=== PATIENT | female | born 1970 | race African-American/Black ===

== ENCOUNTER 2017-01-29 11:33 | Emergency (ER) | payer SELFPAY ==
[~2017-01-29] VITALS: Ht 160 cm; Wt 77.0 kg
[~2017-01-29 11:33] MED LIST: 1-ME1LIQ PO; BENA10TA PO; HYDR12.56 PO; IBUP800T23 PO
[2017-01-29 11:35] VITALS: BP 129/66; PULSE 76; RESP 16; TEMP 97.9; O2SAT 97
[2017-01-29] MEDS ORDERED: FURO40TA PO (12:02)
[2017-01-29] MEDS ORDERED: LOSA50TA2 PO (12:02)
--- NOTE | 2017-01-29 12:18 | PD ---
Physical Exam Date Seen by Provider: Jan 29, 2017 Narrative Patient was sent to us from an urgent care for evaluation of possible DVT in her left lower extremity. Data Data Last Documented VS Vital Signs Date Time Temp Pulse Resp B/P Pulse Ox O2 Delivery O2 Flow Rate FiO2 01/29/17 11:50 96 01/29/17 11:35 97.9 76 16 129/66 Orders Ed Poc Ultrasound (01/29/17 11:54) MDM Supervised Visit with STEPHANIE: Yes Narrative Course I, Dr. Ramos, have reviewed the advance practice practitioner's documentation and am in agreement, met with the patient face to face, made the diagnosis, and the medical decision making was done by me. *My assessment and Findings: Please see procedure note Procedures Procedure Narrative Venous ultrasound The patient's left was scanned from the groin to the popliteal fossa. The veins were 100% compressible. No foreign material was seen in the veins. France Ramos MD Jan 29, 2017 12:17
[2017-01-29] MEDS ORDERED: DICL75TA PO (12:29)
[2017-01-29] MEDS ORDERED: NEUR300C PO (12:29)
--- NOTE | 2017-01-29 12:39 | PD ---
HPI Chief Complaint: Injury Time Seen by Provider: 12:30 Travel History International Travel<30 days: No Contact w/Intl Traveler<30days: No Traveled to known affect area: No History of Present Illness HPI 46-year-old black female presents to emergency department at the recommendation of an urgent care for evaluation of left leg tingling. She states that she was evaluated and sent here for rule out DVT. The patient states that over last few days she's had tingling and pins and needle sensation in her left leg from the mid thigh down into her calf. She denies any trauma. No recent illness. She does smoke occasionally. She does not take control. She has had no sedentary activity. She does not report any swelling of the leg. She does report history of lower back pain in the past and receiving epidural steroid blocks. Her last block was in July. She states that her grandmother's had a DVT in cancer. Her mother has not had blood clots nor has any siblings. Patient denies any abdominal pain, dysuria, frequency, hematuria. No weakness. No redness or warmth. PFSH Past Medical History Narrative Medical Chronic back pain ,Hypertension Anemia: Yes Heart Rhythm Problems: No Cardiac Catheterization: No Cardiovascular Problems: Yes High Cholesterol: No Congestive Heart Failure: No Diabetes: No Diminished Hearing: No GERD: Yes Headaches: Yes Hypertension: Yes Musculoskeletal: Yes (LUMBAR SPINE CHRONIC PAIN) Immunizations Current: Yes Migraines: Yes Tetanus Vaccination: > 5 Years ?: Unknown Menopausal: No : 2 Para: 2 Miscarriage: 0 : 0 Tubal Ligation: Yes Past Surgical History Narrative Surgical , hysterectomy, breast reduction, left knee arthroscopy Abdominal Surgery: Yes (Gastric bypass) Section: Yes (X 2) Coronary Artery Bypass Graft: No Gynecologic Surgery: Yes (tottal hysterectomy) Hysterectomy: Yes Other Surgery: Yes (BREAST REDUCTION) Social History Alcohol Use: Yes (rare) Tobacco Use: Yes Substance Use: No Allergies-Medications (Allergen,Severity, Reaction): Coded Allergies: Dilaudid (Verified Allergy, Intermediate, ITCH, SWELLS UP, 01/29/17) Patient began itching with welts over body after Dilaudid given. Added to Allergy list. Penicillin (Verified Allergy, Mild, HIVES, 01/29/17) Reported Meds & Prescriptions Reported Meds & Active Scripts Active Diclofenac Sodium DR (Diclofenac Sodium) 75 Mg Tabdr 75 Mg PO BID Neurontin (Gabapentin) 300 Mg Cap 300 Mg PO TID Reported Furosemide 40 Mg Tab 40 Mg PO DAILY Losartan-Hydrochlorothiazide 50-12.5 Mg Tab 1 Tab PO DAILY Review of Systems Except as stated in HPI: all other systems reviewed are Neg General / Constitutional: No: Fever, Chills Eyes: No: Blurred Vision, Visual changes HENT: No: Headaches, Neck Stiffness Cardiovascular: No: Chest Pain or Discomfort, Palpitations, Irregular Rhythm, Tachycardia Respiratory: No: Cough, Shortness of Breath Gastrointestinal: No: Nausea, Vomiting, Abdominal Pain Genitourinary: No: Dysuria, Hematuria Musculoskeletal: Positive: Pain, No: Limited ROM Skin: No Rash, No Itching Neurologic: Positive: Paresthesia, Sensory Disturbance, No: Focal Abnormalities, Coordination Problem, Headache Physical Exam Narrative GENERAL: Well-developed, well-nourished in no apparent distress. Nontoxic appearing. HEAD: Normocephalic, atraumatic. EYES: Pupils equal round and reactive. Extraocular motions intact. No scleral icterus. No injection or drainage. ENT: Nose clear. Throat without erythema, tonsillar hypertrophy or exudate. Uvula midline. Airway patent. NECK: Trachea midline. Supple, nontender, moves head freely. No central bony tenderness or spasm. CARDIOVASCULAR: Regular rate and rhythm without murmurs, gallops, or rubs. RESPIRATORY: Clear to auscultation. Breath sounds equal bilaterally. No wheezes , rales, or rhonchi. GASTROINTESTINAL: Abdomen soft, non-tender, nondistended. No hepato-splenomegaly , or palpable masses. No guarding. EXTREMITIES: No clubbing, cyanosis, or edema. No joint tenderness. Examination of the lower extremities reveal no obvious swelling. There is no erythema, warmth or ecchymosis. There are no cords. There is no temperature difference. Patient has intact dorsalis pedis pulses bilaterally. Positive posterior tibialis pulses bilaterally. Patient complains of pain with just light touch of the whole leg from the mid thigh down into the calf. She complains of pain with range of motion testing. Homans sign causes discomfort but is not a classical calf tenderness pain. BACK: Nontender without deformity. No flank tenderness. NEUROLOGICAL: Awake, alert and oriented x 3 .Cranial nerves grossly intact. Motor and sensory grossly within normal limits. Normal speech. Data Data Last Documented VS Vital Signs Date Time Temp Pulse Resp B/P Pulse Ox O2 Delivery O2 Flow Rate FiO2 01/29/17 11:50 96 01/29/17 11:35 97.9 76 16 129/66 Orders Ed Poc Ultrasound (01/29/17 11:54) MDM Medical Decision Making Medical Screen Exam Complete: Yes Emergency Medical Condition: Yes Differential Diagnosis Differential diagnoses: PVD, DVT, radiculopathy, neuropathy Narrative Course The patient's history and exam have been discussed with Dr. CASTRO. The patient 's Wells criteria is 0. She has performed an ultrasound of the left lower extremity for DVT. This has been ruled out. The patient has a compressible venous system. She has palpable arterial pulses. This is not peripheral vascular disease or DVT. I suspect her complaints are more of a neuropathic type pain. This is left leg neuropathy Diagnosis Primary Impression: Neuropathy of left lower extremity Patient Instructions: General Instructions Additional Instructions: Rest. Voltaren and Neurontin. Follow-up with a medical doctor in the next 2-3 days for recheck. Return to the ER if symptoms worsen or if problems develop. If her symptoms do not resolve or worsen he may need repeat ultrasound. Stop smoking. Med/Other Pt SpecificInfo: Prescription(s) given Scripts Diclofenac Sodium DR 75 Mg Tabdr75 Mg PO BID #20 TAB Prov:France Castro MD 01/29/17 Gabapentin (Neurontin)300 Mg [id number] Mg PO TID #30 CAP Prov:France Castro MD 01/29/17 Disposition: 01 DISCHARGE HOME Condition: Stable Juanjo Buckley Jan 29, 2017 12:39
== END 2017-01-29 13:01 | disposition home or self-care (01) ==
LOC: NEPD 11:33
DX: G57.92 Unspecified mononeuropathy of left lower limb (principal); D64.9 Anemia, unspecified; K21.9 Gastro-esophageal reflux disease without esophagitis; I10 Essential (primary) hypertension; Z72.0 Tobacco use; Z79.899 Other long term (current) drug therapy
CPT/HCPCS: 99283

== ENCOUNTER 2017-07-27 13:34 | Observation (INO) | payer SELFPAY ==
[~2017-07-27] VITALS: Ht 160 cm; Wt 75.0 kg
[~2017-07-27 13:34] MED LIST changes: -1-ME1LIQ PO; -BENA10TA PO; +DICL75TA PO; +FURO40TA PO; -HYDR12.56 PO; -IBUP800T23 PO; +LOSA50TA2 PO; +NEUR300C PO
[2017-07-27 13:37] VITALS: BP 176/106; PULSE 87; RESP 15; TEMP 98.5; O2SAT 99
--- NOTE | 2017-07-27 13:57 | PD ---
HPI Chief Complaint: Chest Pain Time Seen by Provider: 13:45 Travel History International Travel<30 days: No Contact w/Intl Traveler<30days: No Traveled to known affect area: No History of Present Illness HPI 47-year-old female presents to the emergency department for evaluation of midsternal chest pressure that started this morning around 9 AM. She states this started before going to interview, but worsened AND interview. She then lost her voice. She states it feels like somebody is sitting on her chest. She has worse with deep breathing. Patient states she has history of anxiety, but this is not typical for anxiety. Just reports history of hypertension. She was on losartan, hydrochlorothiazide, but is no longer taking due to moving down here not having a primary care physician. She had stress test several years ago which was normal, but a recent stress test or cardiac catheterization. She does not follow with a primary care physician or warehousing technician at this time. She has history of gastric bypass, hysterectomy. No recent surgery or travel. No history DVT/PE. No hemoptysis. No leg edema. Patient states she drinks alcohol and smokes tobacco occasionally. No illicit drug use. PFSH Past Medical History Anemia: Yes Heart Rhythm Problems: No Cardiac Catheterization: No Cardiovascular Problems: Yes High Cholesterol: No Congestive Heart Failure: No Diabetes: No Diminished Hearing: No GERD: Yes Headaches: Yes Hypertension: Yes Musculoskeletal: Yes (LUMBAR SPINE CHRONIC PAIN) Immunizations Current: Yes Migraines: Yes ?: Not Menopausal: No : 2 Para: 2 Miscarriage: 0 : 0 Dilation and Curettage (D&C): Yes Tubal Ligation: Yes Past Surgical History Abdominal Surgery: Yes (Gastric bypass) Section: Yes (X 2) Coronary Artery Bypass Graft: No Gynecologic Surgery: Yes (tottal hysterectomy) Hysterectomy: Yes Other Surgery: Yes (BREAST REDUCTION) Social History Alcohol Use: Yes (RARE) Tobacco Use: Yes Substance Use: No Allergies-Medications (Allergen,Severity, Reaction): Coded Allergies: hydromorphone (Unverified Allergy, Intermediate, ITCH, SWELLS UP, 06/06/17) Patient began itching with welts over body after Dilaudid given. Added to Allergy list. penicillin G (Unverified Allergy, Mild, HIVES, 06/06/17) Reported Meds & Prescriptions Reported Meds & Active Scripts Active Diclofenac Sodium DR (Diclofenac Sodium) 75 Mg Tabdr 75 Mg PO BID Neurontin (Gabapentin) 300 Mg Cap 300 Mg PO TID Reported Furosemide 40 Mg Tab 40 Mg PO DAILY Losartan-Hydrochlorothiazide 50-12.5 Mg Tab 1 Tab PO DAILY Review of Systems Except as stated in HPI: all other systems reviewed are Neg Physical Exam Narrative GENERAL: Well-nourished, well-developed female patient, ambulatory. Afebrile. SKIN: Focused skin assessment warm/dry. HEAD: Normocephalic. Atraumatic. EYES: No scleral icterus. No injection or drainage. NECK: Supple, trachea midline. No JVD or lymphadenopathy. CARDIOVASCULAR: Regular rate and rhythm without murmurs, gallops, or rubs. Bilateral radial and pedal pulses are 2+. RESPIRATORY: Breath sounds equal bilaterally. No accessory muscle use. Lungs sounds are clear to auscultation. GASTROINTESTINAL: Abdomen soft, non-tender, nondistended. MUSCULOSKELETAL: No cyanosis, or edema. Midsternal chest pain is reproducible with palpation. BACK: Nontender without obvious deformity. No CVA tenderness. Data Data Last Documented VS Vital Signs Date Time Temp Pulse Resp B/P (MAP) Pulse Ox O2 Delivery O2 Flow Rate FiO2 07/27/17 13:46 89 100 Room Air 07/27/17 13:37 98.5 15 176/106 (129) Orders Orders Electrocardiogram (07/27/17 ) Electrocardiogram (07/27/17 13:51) Basic Metabolic Panel (Bmp) (07/27/17 13:51) Ckmb (Isoenzyme) Profile (07/27/17 13:51) Complete Blood Count With Diff (07/27/17 13:51) Magnesium (Mg) (07/27/17 13:51) Troponin I (07/27/17 13:51) Chest, Single Ap (07/27/17 13:51) Ecg Monitoring (07/27/17 13:51) Bilateral Bp Monitoring (07/27/17 13:51) Iv Access Insert/Monitor (07/27/17 13:51) Oximetry (07/27/17 13:51) Oxygen Administration (07/27/17 13:51) Aspirin Chew (Aspirin Chew) (07/27/17 14:00) Sodium Chloride 0.9% Flush (Ns Flush) (07/27/17 14:00) Ketorolac Inj (Toradol Inj) (07/27/17 14:00) Admit Order (Ed Use Only) (07/27/17 15:46) Pantoprazole (Protonix) (07/27/17 16:00) Acetaminophen (Tylenol) (07/27/17 16:00) Labs Laboratory Tests Test 07/27/17 14:19 White Blood Count 4.1 TH/MM3 Red Blood Count 3.45 MIL/MM3 Hemoglobin 10.7 GM/DL Hematocrit 32.3 % Mean Corpuscular Volume 93.8 FL Mean Corpuscular Hemoglobin 31.0 PG Mean Corpuscular Hemoglobin Concent 33.1 % Red Cell Distribution Width 12.6 % Platelet Count 339 TH/MM3 Mean Platelet Volume 7.9 FL Neutrophils (%) (Auto) 46.0 % Lymphocytes (%) (Auto) 42.1 % Monocytes (%) (Auto) 9.8 % Eosinophils (%) (Auto) 1.2 % Basophils (%) (Auto) 0.9 % Neutrophils # (Auto) 1.9 TH/MM3 Lymphocytes # (Auto) 1.7 TH/MM3 Monocytes # (Auto) 0.4 TH/MM3 Eosinophils # (Auto) 0.1 TH/MM3 Basophils # (Auto) 0.0 TH/MM3 CBC Comment DIFF FINAL Differential Comment Blood Urea Nitrogen 12 MG/DL Creatinine 0.71 MG/DL Random Glucose 80 MG/DL Calcium Level 8.9 MG/DL Magnesium Level 1.9 MG/DL Sodium Level 137 MEQ/L Potassium Level 3.9 MEQ/L Chloride Level 103 MEQ/L Carbon Dioxide Level 29.2 MEQ/L Anion Gap 5 MEQ/L Estimat Glomerular Filtration Rate 107 ML/MIN Total Creatine Kinase 68 U/L Troponin I LESS THAN 0.02 NG/ML MDM Medical Decision Making Medical Screen Exam Complete: Yes Emergency Medical Condition: Yes Medical Record Reviewed: Yes Interpretation(s) Last Impressions Chest X-Ray 07/27/17 3911 Signed Impressions: Service Date/Time: July 14:05 - CONCLUSION: No acute disease. Riley Worthy MD Differential Diagnosis ACS versus muscle strain versus anxiety versus pneumonia versus pneumothorax Narrative Course 47-year-old female presents to the emergency department for evaluation of chest pain that started this morning at 9 AM. Chest pain is reproducible. Patient states it feels like a person is sitting on her. EKG shows sinus rhythm, heart rate 87, no acute ST changes. CBC, BMP, CK, troponin, magnesium, chest x-ray ordered and pending. Patient is given aspirin 162 mg by mouth, Toradol 30 mg IV. CBC shows no acute abnormality. BMP is unremarkable. CK is 68. Troponin troponin is less than 0.02. Magnesium is 1.9. Chest x-ray shows no acute disease. Patient states aspirin has caused her to have "abdominal cramping" and the Toradol caused her to have a headache. Patient is given protonic strain milligrams by mouth, Tylenol 650 mg by mouth. She agrees to admission to chest pain center for further evaluation. Diagnosis Primary Impression: Chest pain Qualified Codes: R07.9 - Chest pain, unspecified Admitting Information Admitting Physician Requests: Yane Wright Jul 27, 2017 13:57
[2017-07-27] MEDS ORDERED: ASPIRIN 81 MG CHEW TAB PO ONE (14:00)
[2017-07-27] MEDS ORDERED: KETOROLAC TROMETHAMINE 30 MG/ML (IVP) VIAL IV PUSH ONE (14:00)
--- NOTE | 2017-07-27 14:17 | RADRPT ---
EXAM DATE/TIME: 07/27/2017 14:05 [facility] COMPARISON: No previous studies available for comparison. INDICATIONS : Mid chest pain. MEDICAL HISTORY : Asthma. SURGICAL HISTORY : section. Gastric bypass. D&C. ENCOUNTER: Initial ACUITY: 2 days PAIN SCORE: 8/10 LOCATION: Bilateral chest FINDINGS: A single view of the chest demonstrates the lungs to be symmetrically aerated without evidence of mas s, infiltrate or effusion. The cardiomediastinal contours are unremarkable. Osseous structures are intact. CONCLUSION: No acute disease. Riley Worthy MD on July 27, 2017 at 14:15 Board Certified Radiologist. This report was verified electronically.
[2017-07-27 15:08] LABS: AUTOMATED NEUTROPHIL # 1.9 TH/MM3 (1.8-7.7); BASOPHIL % 0.9 % (0.0-2.0); EOSINOPHIL # 0.1 TH/MM3 (0-0.4); EOSINOPHIL % 1.2 % (0.0-4.0); HEMATOCRIT 32.3 % (35.0-46.0); HEMO FLAGS DIFF FINAL; LYMPH % 42.1 % (9.0-44.0); LYMPHOCYTE # 1.7 TH/MM3 (1.0-4.8); MEAN CELL VOLUME 93.8 FL (80.0-100.0); MEAN CORPUSCULAR HGB CONC 33.1 % (32.0-36.0); MONO % 9.8 % (0.0-8.0); PLATELET COUNT 339 TH/MM3 (150-450); RED BLOOD COUNT 3.45 MIL/MM3 (4.00-5.30); RED CELL DISTRIBUTION WIDTH 12.6 % (11.6-17.2); WHITE BLOOD COUNT 4.1 TH/MM3 (4.0-11.0)
[2017-07-27 15:26] LABS: ANION GAP 5 MEQ/L (5-15); BICARBONATE 29.2 MEQ/L (21.0-32.0); BLOOD UREA NITROGEN 12 MG/DL (7-18); CHLORIDE 103 MEQ/L (98-107); GLOMERULAR FILTRATION RATE 107 ML/MIN (>89); MAGNESIUM 1.9 MG/DL (1.5-2.5); POTASSIUM 3.9 MEQ/L (3.5-5.1); SODIUM (NA) 137 MEQ/L (136-145)
[2017-07-27 15:41] LABS: CREATINE KINASE 68 U/L (26-192)
[2017-07-27] MEDS ORDERED: ACETAMINOPHEN 325 MG TAB PO ONE (16:00)
[2017-07-27] MEDS ORDERED: PANTOPRAZOLE SOD 20 MG DELAYED RELEASE TAB PO ONE (16:00)
[2017-07-27] MEDS ORDERED: ONDANSETRON HCL 4 MG/2 ML VIAL IV PRN (16:15)
[2017-07-27] MEDS ORDERED: RESP: ALBUTEROL 2.5 MG/IPRATROPIUM 0.5 MG NEB (PRN) INH (16:15)
[2017-07-27] MEDS ORDERED: ACETAMINOPHEN 500 MG CPLT PO PRN (16:15)
[2017-07-27] MEDS ORDERED: SODIUM CHLORIDE 0.9% FLUSH 5 ML FLUSH IVF PRN (16:15)
[2017-07-27] MEDS ORDERED: cloNIDine HCL 0.1 MG TAB PO PRN (16:15)
[2017-07-27] MEDS ORDERED: NON-FORMULARY DRUG (Losartan-Hydrochlorothiazide 1 TAB) PO SCH (16:30)
--- NOTE | 2017-07-27 16:38 | HHI.HP ---
HPI Primary Care Physician No Primary Care Physician Chief Complaint Chest pain History of Present Illness This is a 47-year-old female that presents to ED via private vehicle with a complaint of chest discomfort. She states that her discomfort began around 8: 00 this morning while she was at home. She describes as a central chest pressure. It has been present intermittently since lasting about 10-15 seconds each time. Nothing in particular sitting to bring on the discomfort. States that taking a deep breath worsens it but that was not present earlier, states it began since she was in the ED. Denies shortness breath, nausea, or diaphoresis with it. She then states that she was at a job interview around 12: 30 and in the middle of the interview the intensity worsened. The duration remain the same the frequency remain same but the intensity didn't worsen. She denies history of CAD. She has had stress tests in the past. She had a adenosine thallium stress test at this facility in 2009 that was nonischemic and a ETT in 2013 at this facility as nonischemic but was suboptimal at 74% predicted walking 3 minutes and 32 seconds. Patient has history of hypertension and states she has not taken her medications in at least 4 months. Denies recent illness. Denies fevers or chills. Denies recent travel. Review of Systems General: Patient denies fevers, chills recent, and recent travel HEENT: Patient denies headache, sore throat, difficulty swallowing. Cardiovascular: Has the chest discomfort as mentioned above. Denies sensation of heart beating rapidly or irregularly. No syncope. Denies diaphoresis. Respiratory: Discomfort is not worsened with deep inspiration but states that was not present earlier. Denies shortness of breath. Denies coughing wheezing or hemoptysis. GI: Patient denies nausea, vomiting, diarrhea, abdominal pain, bloody stools. Musculoskeletal: Patient denies joint pain or edema. Denies calf pain or edema. Neurovascular: Patient denies numbness, tingling, weakness in extremities. Denies headache. Endocrine: Denies polyuria and polydipsia. Hematologic: Denies easy bruising. Skin: Denies rash or itching. Past Family Social History Allergies: Coded Allergies: hydromorphone (Unverified Allergy, Intermediate, ITCH, SWELLS UP, 06/06/17) Patient began itching with welts over body after Dilaudid given. Added to Allergy list. penicillin G (Unverified Allergy, Mild, HIVES, 06/06/17) Past Medical History Hypertension and out of medications for 4 months. GERD. History of gastric bypass in 2015. History of tobacco abuse. Denies hyperlipidemia, diabetes, and CAD. Past Surgical History Gastric bypass. Hysterectomy. Left knee surgery. D&C. 2. Breast reduction. Reported Medications Reported Meds & Active Scripts Active Reported Losartan-Hydrochlorothiazide 50-12.5 Mg Tab 1 Tab PO DAILY Active Ordered Medications Current Medications Medications (Trade) Dose Ordered Sig/Radha Route Start Time Stop Time Status Last Admin (NS Flush) 2 ml UNSCH PRN IVF 07/27/17 14:00 (NS Flush) 2 ml UNSCH PRN IVF 07/27/17 16:15 UNV (NS Flush) 2 ml BID IVF 07/27/17 21:00 UNV (Tylenol) 500 mg Q4H PRN PO 07/27/17 16:15 UNV (Zofran Inj) 4 mg Q6H PRN IV 07/27/17 16:15 UNV (Protonix) 40 mg DAILY PO 07/27/17 16:15 UNV (Aspirin) 325 mg DAILY PO 07/28/17 09:00 UNV (Duoneb Neb) 1 ampule Q4HR NEB PRN INH 07/27/17 16:15 UNV (Catapres) 0.1 mg Q4H PRN PO 07/27/17 16:15 UNV (Percocet 5-325 Mg) 1 tab Q6H PRN PO 07/27/17 16:15 UNV Non-Formulary Medication 1 tab DAILY PO 07/27/17 16:30 UNV Family History Denies family history of CAD. Social History Patient states she has smoked one pack of cigarettes per month intermittently over the last 20 years. States she's not a regular smoker. Rarely has alcohol. Has occasional marijuana stenting last time was last week. This is a 25-year-old daughter. Physical Exam Vital Signs Vital Signs Date Time Temp Pulse Resp B/P (MAP) Pulse Ox O2 Delivery O2 Flow Rate FiO2 07/27/17 13:46 89 100 Room Air 07/27/17 13:37 98.5 87 15 176/106 (129) 99 Physical Exam GENERAL: This is a well-nourished, well-developed patient, in no apparent distress. Patient speaks in clear complete sentences. Patient is pleasant. HEENT: Head is atraumatic and normocephalic. Neck is supple without lymphadenopathy and trachea is midline. No JVD or carotid bruits. CARDIOVASCULAR: Regular rate and rhythm without murmurs, gallops, or rubs. RESPIRATORY: Clear to auscultation. Breath sounds equal bilaterally. No wheezes , rales, or rhonchi. Chest wall is tender over the sternum bring back the discomfort that brought the patient to the ED. No use of accessory muscles. GASTROINTESTINAL: Abdomen is nontender, nondistended. Abdomen soft. No obvious pulsatile mass or bruit. No CVA tenderness. Strong femoral pulses bilaterally. Normal bowel sounds in all quadrants. MUSCULOSKELETAL: Patient is moving upper and lower extremities freely. No calf tenderness or edema, no Homans sign. Strong pulses in upper and lower extremities. NEUROLOGICAL: Patient is alert and oriented. Cranial nerves 2-12 are grossly intact. No focal deficits and speech is clear. SKIN: No rash and turgor is normal. Laboratory Laboratory Tests Test 07/27/17 14:19 White Blood Count 4.1 Red Blood Count 3.45 Hemoglobin 10.7 Hematocrit 32.3 Mean Corpuscular Volume 93.8 Mean Corpuscular Hemoglobin 31.0 Mean Corpuscular Hemoglobin Concent 33.1 Red Cell Distribution Width 12.6 Platelet Count 339 Mean Platelet Volume 7.9 Neutrophils (%) (Auto) 46.0 Lymphocytes (%) (Auto) 42.1 Monocytes (%) (Auto) 9.8 Eosinophils (%) (Auto) 1.2 Basophils (%) (Auto) 0.9 Neutrophils # (Auto) 1.9 Lymphocytes # (Auto) 1.7 Monocytes # (Auto) 0.4 Eosinophils # (Auto) 0.1 Basophils # (Auto) 0.0 CBC Comment DIFF FINAL Differential Comment Blood Urea Nitrogen 12 Creatinine 0.71 Random Glucose 80 Calcium Level 8.9 Magnesium Level 1.9 Sodium Level 137 Potassium Level 3.9 Chloride Level 103 Carbon Dioxide Level 29.2 Anion Gap 5 Estimat Glomerular Filtration Rate 107 Total Creatine Kinase 68 Troponin I LESS THAN 0.02 Result Diagram: 07/27/17 1419 07/27/17 1419 Imaging Last 48 hours Impressions Chest X-Ray 07/27/17 1351 Signed Impressions: Service Date/Time: July 14:05 - CONCLUSION: No acute disease. Riley Worthy MD Course Initial EKG is sinus rhythm with a rate of [address] segment depressions or elevations. Caprini VTE Risk Assessment Caprini VTE Risk Assessment: No/Low Risk (score <= 1) Caprini Risk Assessment Model Point Value = 1 Point Value = 2 Point Value = 3 Point Value = 5 Age 41-60 Minor surgery BMI > 25 kg/m2 Swollen legs Varicose veins or History of unexplained or recurrent spontaneous Oral contraceptives or hormone replacement Sepsis (< 1 month) Serious lung disease, including pneumonia (< 1 month) Abnormal pulmonary function Acute myocardial infarction Congestive heart failure (< 1 month) History of inflammatory bowel disease Medical patient at bed rest Age 61-74 Arthroscopic surgery Major open surgery (> 45 min) Laparoscopic surgery (> 45 min) Malignancy Confined to bed (> 72 hours) Immobilizing plaster cast Central venous access Age >= 75 History of VTE Family history of VTE Factor V Leiden Prothrombin [id number] Lupus anticoagulant Anticardiolipin antibodies Elevated serum homocysteine Heparin-induced thrombocytopenia Other congenital or acquired thrombophilia Stroke (< 1 month) Elective arthroplasty Hip, pelvis, or leg fracture Acute spinal cord injury (< 1 month) Prophylaxis Regimen Total Risk Factor Score Risk Level Prophylaxis Regimen 0-1 Low Early ambulation 2 Moderate Order ONE of the following: *Sequential Compression Device (SCD) *Heparin 5000 units SQ BID 3-4 Higher Order ONE of the following medications: *Heparin 5000 units SQ TID *Enoxaparin/Lovenox 40 mg SQ daily (WT < 150 kg, CrCl > 30 mL/min) *Enoxaparin/Lovenox 30 mg SQ daily (WT < 150 kg, CrCl > 10-29 mL/min) *Enoxaparin/Lovenox 30 mg SQ BID (WT < 150 kg, CrCl > 30 mL/min) AND/OR *Sequential Compression Device (SCD) 5 or more Highest Order ONE of the following medications: *Heparin 5000 units SQ TID (Preferred with Epidurals) *Enoxaparin/Lovenox 40 mg SQ daily (WT < 150 kg, CrCl > 30 mL/min) *Enoxaparin/Lovenox 30 mg SQ daily (WT < 150 kg, CrCl > 10-29 mL/min) *Enoxaparin/Lovenox 30 mg SQ BID (WT < 150 kg, CrCl > 30 mL/min) AND *Sequential Compression Device (SCD) Assessment and Plan Assessment and Plan * Chest pain: Patient's symptoms are atypical and seemed to be musculoskeletal in nature. Patient will continue to have serial cardiac enzymes and EKGs for ruling out purposes and will be seen by Dr. Jaimes cardiology and the chest pain center and likely will have a stress test in the morning if she rules out. We'll give Percocet for when necessary pain as she states that she can take Percocet. D-dimer also is pending. At discharge patient should follow -up with PCP. * Hypertension: Resume her medication. She will need follow-up with local physician to renew the medication also recheck electrolytes. * GERD: Patient uses occasional PPI at home. Patient has been instructed to take this regularly. Patient will have Protonix while in the chest pain center. * Tobacco abuse: Patient has been counseled on the importance of smoking cessation. Patient is stable at this time. She is agreeable to this plan. Eugenio Pace Jul 27, 2017 16:38
[2017-07-27] MEDS: PANTOPRAZOLE SOD 40 MG DELAYED RELEASE TAB PO SCH (18:11)
[2017-07-27 18:22] VITALS: BP 160/83
[2017-07-27 18:40] VITALS: BP 167/94; PULSE 83; RESP 18; TEMP 99; O2SAT 100
[2017-07-27 19:46] LABS: CREATINE KINASE 82 U/L (26-192)
[2017-07-27 20:00] VITALS: PULSE 90
[2017-07-27] MEDS: oxyCODONE/ACETAMINOPHEN 5 MG/325 MG TAB PO PRN (20:16)
[2017-07-27] MEDS: SODIUM CHLORIDE 0.9% FLUSH 10 ML FLUSH IVF PRN (20:17)
[2017-07-27] MEDS: SODIUM CHLORIDE 0.9% FLUSH 5 ML FLUSH IVF SCH (20:17)
[2017-07-27] MEDS ORDERED: IOHEXOL 350 MG/ML 10 ML VIAL (for RAD DIAG) IVCONTRAST ONE (21:14)
[2017-07-27 21:33] VITALS: O2SAT 99
[2017-07-27 21:47] VITALS: BP 147/68; PULSE 78; RESP 18; TEMP 98.4; O2SAT 98
[2017-07-27 21:49] LABS: CREATINE KINASE 57 U/L (26-192)
--- NOTE | 2017-07-27 21:51 | RADRPT ---
EXAM DATE/TIME: 07/27/2017 21:08 [facility] COMPARISON: No previous studies available for comparison. INDICATIONS : Chest pain. IV CONTRAST: 75 cc Omnipaque 350 (iohexol) IV RADIATION DOSE: 23.09 CTDIvol (mGy) MEDICAL HISTORY : Hypertension. SURGICAL HISTORY : None. ENCOUNTER: Initial ACUITY: 1 day PAIN SCALE: 5/10 LOCATION: chest TECHNIQUE: Volumetric scanning of the chest was performed using a pulmonary embolism protocol MIP images were re constructed. Using automated exposure control and adjustment of the mA and/or kV according to patien t size, radiation dose was kept as low as reasonably achievable to obtain optimal diagnostic quality images. DICOM format image data is available electronically for review and comparison. Follow-up recommendations for detected pulmonary nodules are based at a minimum on nodule size and pa tient risk factors according to Fleischner Society Guidelines. FINDINGS: PULMONARY ARTERIES: No filling defects are seen in the pulmonary arteries through the segmental level. LUNGS: There is no consolidation or pneumothorax . No concerning pulmonary nodule is visualized. PLEURAE: There is no pleural thickening or pleural effusion. MEDIASTINUM: There is good visualization of the great vessels of the middle mediastinum. No evidence of mediastin al or hilar adenopathy/mass. MUSCULOSKELETAL: Within normal limits for patient age. MISCELLANEOUS: The visualized upper abdominal organs demonstrate no acute abnormality. There are bowel lupe aroun d the stomach. CONCLUSION: No acute disease. No pulmonary embolus is seen. Michael Mott MD on July 27, 2017 at 21:48 Board Certified Radiologist. This report was verified electronically.
[2017-07-28] VITALS: PULSE 72
[2017-07-28 00:27] VITALS: BP 131/78; PULSE 74; RESP 18; TEMP 98.1; O2SAT 99
[2017-07-28 04:01] VITALS: PULSE 84
[2017-07-28 05:01] VITALS: BP 176/84; PULSE 64; RESP 18; TEMP 98.4; O2SAT 98
[2017-07-28] MEDS: oxyCODONE/ACETAMINOPHEN 5 MG/325 MG TAB PO PRN (05:08)
[2017-07-28 07:52] VITALS: BP 150/99; PULSE 75; RESP 16; TEMP 98.1; O2SAT 100
[2017-07-28] MEDS: SODIUM CHLORIDE 0.9% FLUSH 5 ML FLUSH IVF SCH (09:00)
[2017-07-28] MEDS ORDERED: LOSARTAN 50 MG TAB PO SCH (09:00)
[2017-07-28] MEDS ORDERED: ASPIRIN 325 MG TAB PO SCH (09:00)
[2017-07-28] MEDS ORDERED: HYDROCHLOROTHIAZIDE 12.5 MG CAP PO SCH (09:00)
[2017-07-28] MEDS ORDERED: REGADENOSON INJ 0.4 MG/5 ML SYR ONE (09:16)
[2017-07-28 10:13] VITALS: O2SAT 100
[2017-07-28] MEDS: PANTOPRAZOLE SOD 40 MG DELAYED RELEASE TAB PO SCH (10:51)
[2017-07-28] MEDS: SODIUM CHLORIDE 0.9% FLUSH 10 ML FLUSH IVF PRN (10:52)
--- NOTE | 2017-07-28 11:02 | RADRPT ---
EXAM DATE/TIME: 07/28/2017 08:49 [facility] COMPARISON: No previous studies available for comparison. INDICATIONS : Mid chest pain for one day. Angina. DOSE: 25.6 mCi Tc99m Myoview at stress. 8.4 mCi Tc99m Myoview at rest. 0.4 mg Lexiscan STRESS SYMPTOMS: Chest pressure. EJECTION FRACTION: 67% MEDICAL HISTORY : Hypertension. Gastroesophageal reflux disease. SURGICAL HISTORY : Hysterectomy. Gastric bypass. section. ENCOUNTER: Initial ACUITY: 1 day PAIN SCALE: 5/10 LOCATION: Midsternal chest TECHNIQUE: The patient underwent pharmacologic stress with infusion of prescribed dose. Continuous ECG tracing was monitored during stress. Gated SPECT imaging was performed after stress and conventional SPECT i maging was performed at rest. The examination was performed on a SPECT/CT scanner, both attenuation and non-corrected datasets were reviewed. FINDINGS: DISTRIBUTION: The maximum perfused segment at stress is in the anterior wall. PERFUSION STUDY: The pattern of perfusion at stress is within normal limits, with the exception of a small defect in t he inferior wall. GATED STUDY: There is intact wall motion and thickening without hypokinetic or dyskinetic segments. CONCLUSION: 1. No reversible perfusion defect to suggest ischemia. 2. Normal ejection fraction. RISK CATEGORY: Low (<1% Annual Mortality Rate) Gulshan Triplett MD on July 28, 2017 at 10:54 Board Certified Radiologist. This report was verified electronically.
--- NOTE | 2017-07-28 11:08 | HHI.DCPOC ---
Discharge Care Plan Diagnosis: (1) Chest pain (2) Hypertension (3) Tobacco abuse Goals to Promote Your Health * To prevent worsening of your condition and complications * To maintain your health at the optimal level Directions to Meet Your Goals Take your medications as prescribed Follow your dietary instruction Follow activity as directed Keep your appointments as scheduled Take your immunizations and boosters as scheduled If your symptoms worsen call your PCP, if no PCP go to Urgent Care Center or Emergency Room Smoking is Dangerous to Your Health. Avoid second hand smoke Call the 24-hour hour crisis hotline for domestic abuse at Eugenio Pace Jul 28, 2017 11:08
--- NOTE | 2017-07-28 15:01 | TR ---
Date Performed: 07/28/2017 Time Performed: 09:35:56 DOCTOR: Robin Moreland DRUG LIST: CLINICAL HISTORY: ANGINA REASON FOR TEST: REASON FOR ENDING: OBSERVATION: CONCLUSION: Lexiscan stress test was performed under standard four minute protocol. Radionuclid e was injected one minute prior to ending the test. No electrocardiographic abormalities were present to suggest ischemia. Nuclear imaging and interpretation are pending. COMMENTS:
--- NOTE | 2017-07-28 15:12 | EKG ---
Date Performed: 07/27/2017 Time Performed: 20:59:19 PTAGE: 47 years EKG: Sinus rhythm NORMAL ECG PREVIOUS TRACING : 07/27/2017 17.33 Since previous tracing, no significant change noted DOCTOR: Robin Moreland Interpretating Date/Time 07/28/2017 15:11:28
--- NOTE | 2017-07-28 15:18 | EKG ---
Date Performed: 07/27/2017 Time Performed: 17:33:57 PTAGE: 47 years EKG: Sinus rhythm POSSIBLE LEFT ATRIAL ENLARGEMENT BORDERLINE ECG PREVIOUS TRACING : 07/27/2017 13.47 Since previous tracing, no significant change noted DOCTOR: Robin Moreland Interpretating Date/Time 07/28/2017 15:16:38
--- NOTE | 2017-07-28 15:21 | EKG ---
Date Performed: 07/27/2017 Time Performed: 13:47:24 PTAGE: 47 years EKG: Sinus rhythm NORMAL ECG PREVIOUS TRACING : 11/18/2013 02.51 Since previous tracing, no significant change noted DOCTOR: Robin Moreland Interpretating Date/Time 07/28/2017 15:19:24
== END 2017-07-28 12:27 | disposition home or self-care (01) ==
LOC: NEPC 13:34 → NEDA 15:48 → NEPFCDU 18:27
PROVIDERS: ADMIT Internal Medicine Interventional Cardiology; ATTEND Internal Medicine Interventional Cardiology
DX: R07.89 Other chest pain (principal); I10 Essential (primary) hypertension; R94.31 Abnormal electrocardiogram [ECG] [EKG]; K21.9 Gastro-esophageal reflux disease without esophagitis; F12.90 Cannabis use, unspecified, uncomplicated; F17.200 Nicotine dependence, unspecified, uncomplicated; Z98.84 Bariatric surgery status
CPT/HCPCS: 71010; 71275; 78452; 80048; 82550; 83735; 84484; 85025; 85379; 93005; 93017; 96374; 99285; A9502; G0378; J1885; J2785; Q9967

== ENCOUNTER 2017-08-16 12:57 | Emergency (ER) | payer SELFPAY ==
[~2017-08-16] VITALS: Ht 160 cm; Wt 75.0 kg
[~2017-08-16 12:57] MED LIST changes: -DICL75TA PO; -FURO40TA PO; -NEUR300C PO
[2017-08-16 13:00] VITALS: BP 150/95; PULSE 88; RESP 16; TEMP 99; O2SAT 100
[2017-08-16] MEDS ORDERED: OMEP10CA PO (13:54)
--- NOTE | 2017-08-16 13:58 | PD ---
HPI Chief Complaint: Abdominal Pain Time Seen by Provider: 13:52 Travel History International Travel<30 days: No Contact w/Intl Traveler<30days: No Traveled to known affect area: No History of Present Illness HPI 47 years old female complains of low abdominal pain pelvic pain and dysuria. Patient states that the symptoms started several days ago. Patient complains of low back pain also. Patient denies any fever chills. Patient status post hysterectomy. Patient denies any vaginal discharge or bleeding. Patient denies any headache. Patient denies any chest pain or shortness of breath. Patient denies any nausea vomiting diarrhea. PFSH Past Medical History Anemia: Yes Heart Rhythm Problems: No Cardiac Catheterization: No Cardiovascular Problems: Yes High Cholesterol: No Congestive Heart Failure: No Diabetes: No Diminished Hearing: No GERD: Yes Headaches: Yes Hypertension: Yes Musculoskeletal: Yes (LUMBAR SPINE CHRONIC PAIN) Immunizations Current: Yes Migraines: Yes ?: Not Menopausal: No : 2 Para: 2 Miscarriage: 0 : 0 Dilation and Curettage (D&C): Yes Tubal Ligation: Yes Past Surgical History Abdominal Surgery: Yes (Gastric bypass) Section: Yes (X 2) Coronary Artery Bypass Graft: No Gynecologic Surgery: Yes (total hysterectomy) Hysterectomy: Yes Other Surgery: Yes (BREAST REDUCTION) Social History Alcohol Use: Yes (RARE) Tobacco Use: Yes Substance Use: No Allergies-Medications (Allergen,Severity, Reaction): Coded Allergies: hydromorphone (Unverified Allergy, Intermediate, ITCH, SWELLS UP, 06/06/17) Patient began itching with welts over body after Dilaudid given. Added to Allergy list. tramadol (Verified Allergy, Intermediate, HEADACHE, 08/16/17) penicillin G (Unverified Allergy, Mild, HIVES, 06/06/17) Reported Meds & Prescriptions Reported Meds & Active Scripts Active Reported Omeprazole 10 Mg Cap 10 Mg PO DAILY Losartan-Hydrochlorothiazide 50-12.5 Mg Tab 1 Tab PO DAILY Review of Systems General / Constitutional: No: Fever Eyes: No: Visual changes HENT: No: Headaches Cardiovascular: No: Chest Pain or Discomfort Respiratory: No: Shortness of Breath Gastrointestinal: Positive: Abdominal Pain Genitourinary: Positive: Dysuria, Pelvic Pain Musculoskeletal: No: Pain Skin: No Rash Neurologic: No: Weakness Psychiatric: No: Depression Endocrine: No: Polydipsia Hematologic/Lymphatic: No: Easy Bruising Physical Exam Narrative GENERAL: Well-nourished, well-developed patient. SKIN: Focused skin assessment warm/dry. HEAD: Normocephalic. EYES: No scleral icterus. No injection or drainage. NECK: Supple, trachea midline. No JVD or lymphadenopathy. CARDIOVASCULAR: Regular rate and rhythm without murmurs, gallops, or rubs. RESPIRATORY: Breath sounds equal bilaterally. No accessory muscle use. GASTROINTESTINAL: Abdomen soft, nondistended. Patient has mild tenderness on palpation lower abdomen suprapubic area. No rebound tenderness. No mass. MUSCULOSKELETAL: No cyanosis, or edema. BACK: Nontender without obvious deformity. No CVA tenderness. Neurologic exam normal. Data Data Last Documented VS Vital Signs Date Time Temp Pulse Resp B/P (MAP) Pulse Ox O2 Delivery O2 Flow Rate FiO2 08/16/17 13:00 99.0 88 16 150/95 (113) 100 Orders Orders Urinalysis - C+S If Indicated (08/16/17 13:53) Urine Culture (08/16/17 13:57) Sulfamet-Trimeth Ds 800-160 Mg (Bactrim (08/16/17 14:45) Labs Laboratory Tests Test 08/16/17 13:57 Urine Collection Type CLEAN CATCH Urine Color YELLOW Urine Turbidity CLEAR Urine pH 5.5 Urine Specific [place] 1.022 Urine Protein TRACE mg/dL Urine Glucose (UA) NEG mg/dL Urine Ketones NEG mg/dL Urine Occult Blood NEG Urine Nitrite POS Urine Bilirubin NEG Urine Leukocyte Esterase TRACE Urine WBC 25-49 /hpf Urine Squamous Epithelial Cells 6-8 /hpf Urine Bacteria FEW /hpf Microscopic Urinalysis Comment CULTURE INDICATED Urine Collection Time 13:57 [facility] Medical Decision Making Medical Screen Exam Complete: Yes Emergency Medical Condition: Yes Interpretation(s) UA positive for WBC and bacteria. Differential Diagnosis Differential diagnosis including urethritis, UTI, pyelonephritis, nephrolithiasis, colitis Narrative Course 47 years old female with low abdominal suprapubic pain and dysuria. Diagnosis Primary Impression: UTI (urinary tract infection) Qualified Codes: N30.00 - Acute cystitis without hematuria Patient Instructions: General Instructions Additional Instructions: Take medications as directed. Encouraged by mouth fluid. Cranberry juice. Follow-up with personal physician. Return if worse. Med/Other Pt SpecificInfo: Prescription(s) given Scripts Phenazopyridine (Pyridium) 100 Mg Tab 100 MG PO Q8H Y for DYSURIA, #10 TAB 0 Refills Prov: Farhad Machado MD 08/16/17 Sulfamethoxazole-Trimethoprim (Bactrim DS) 800-160 Mg Tab 1 TAB PO BID for Infection, #14 TAB 0 Refills Prov: Farhad Machado MD 08/16/17 Disposition: 01 DISCHARGE HOME Condition: Stable Farhad Machado MD Aug 16, 2017 13:58
[2017-08-16 14:14] LABS: BILIRUBIN, URINE NEG (NEG); BLOOD, URINE NEG (NEG); GLUCOSE,URINE NEG (NEG); KETONE, URINE NEG (NEG); NITRITE,URINE POS (NEG); PH, URINE 5.5 (5.0-8.5); URINE LEUKOCYTE ESTERASE TRACE (NEG)
[2017-08-16 14:22] LABS: BACTERIA, URINE FEW /hpf; URINE COLOR YELLOW (YELLW/STRAW)
[2017-08-16] MEDS ORDERED: PHENAZOPYRIDINE HCL 200 MG TAB PO ONE (14:45)
[2017-08-16] MEDS ORDERED: SULFAMETHOXAZOLE-TRIMETHOPRIM DS 800-160 MG TAB PO ONE (14:45)
[2017-08-16] MEDS ORDERED: BACT800T5 PO (14:47)
[2017-08-16] MEDS ORDERED: PHEN0.4T PO (14:47)
== END 2017-08-16 14:55 | disposition home or self-care (01) ==
LOC: PHED 12:57
DX: N30.00 Acute cystitis without hematuria (principal); B96.20 Unspecified Escherichia coli [E. coli] as the cause of diseases classified elsewhere; M54.5 Low back pain; R30.0 Dysuria; D64.9 Anemia, unspecified; Z72.0 Tobacco use
CPT/HCPCS: 81001; 87077; 87086; 87186; 99283

== ENCOUNTER 2017-09-13 09:42 | Emergency (ER) | payer SELFPAY ==
[~2017-09-13] VITALS: Ht 160 cm; Wt 75.0 kg
[~2017-09-13 09:42] MED LIST changes: +BACT800T5 PO; +OMEP10CA PO; +PHEN0.4T PO
[2017-09-13 09:43] VITALS: BP 182/95; PULSE 88; RESP 18; TEMP 98.1; O2SAT 99
[2017-09-13] MEDS ORDERED: MULTTAB67 PO (09:49)
[2017-09-13] MEDS ORDERED: IBUPROFEN 600 MG TAB PO ONE (10:00)
--- NOTE | 2017-09-13 10:00 | PD ---
HPI Chief Complaint: Injury Time Seen by Provider: 09:47 Travel History International Travel<30 days: No Contact w/Intl Traveler<30days: No Traveled to known affect area: No History of Present Illness HPI Patient is a 47-year-old female comes in complaining of left wrist pain. She says that she fell 3 days ago. She says she slipped and fell in the house and tried to brace her fall with her left hand. She denies any other injuries. She says the pain is mostly on the lateral side of her wrist up into her hand. She has been trying to ice it and use an Laron wrap, without much relief. PFSH Past Medical History Anemia: Yes Heart Rhythm Problems: No Cardiac Catheterization: No Cardiovascular Problems: Yes High Cholesterol: No Congestive Heart Failure: No Diabetes: No Diminished Hearing: No GERD: Yes Headaches: Yes Hypertension: Yes Musculoskeletal: Yes (LUMBAR SPINE CHRONIC PAIN) Immunizations Current: Yes Migraines: Yes ?: Not Menopausal: No : 2 Para: 2 Miscarriage: 0 : 0 Dilation and Curettage (D&C): Yes Tubal Ligation: Yes Past Surgical History Abdominal Surgery: Yes (Gastric bypass) Section: Yes (X 2) Coronary Artery Bypass Graft: No Gynecologic Surgery: Yes (total hysterectomy) Hysterectomy: Yes Other Surgery: Yes (BREAST REDUCTION) Social History Alcohol Use: Yes (RARE) Tobacco Use: Yes Substance Use: No Allergies-Medications (Allergen,Severity, Reaction): Coded Allergies: hydromorphone (Unverified Allergy, Intermediate, ITCH, SWELLS UP, 06/06/17) Patient began itching with welts over body after Dilaudid given. Added to Allergy list. tramadol (Verified Allergy, Intermediate, HEADACHE, 08/16/17) penicillin G (Unverified Allergy, Mild, HIVES, 06/06/17) Reported Meds & Prescriptions Reported Meds & Active Scripts Active Reported Multiple Vitamin 1 Tab 1 Tab PO DAILY Omeprazole 10 Mg Cap 10 Mg PO DAILY Losartan-Hydrochlorothiazide 50-12.5 Mg Tab 1 Tab PO DAILY Review of Systems General / Constitutional: No: Fever, Chills HENT: No: Headaches, Lightheadedness Cardiovascular: No: Chest Pain or Discomfort Respiratory: No: Shortness of Breath Gastrointestinal: No: Abdominal Pain Genitourinary: No: Flank Pain Musculoskeletal: Positive: Pain, No: Edema Skin: No Rash, No Change in Pigmentation Neurologic: No: Weakness, Dizziness, Sensory Disturbance Physical Exam Narrative GENERAL: Awake and alert, in no acute distress. SKIN: Focused skin assessment warm/dry. HEAD: Atraumatic. Normocephalic. EYES: Pupils equal and round. No scleral icterus. ENT: Mucous membranes pink and moist. CARDIOVASCULAR: Regular rate and rhythm. No murmur appreciated. RESPIRATORY: No accessory muscle use. Clear to auscultation. Breath sounds equal bilaterally. MUSCULOSKELETAL: No obvious deformities. No clubbing. No cyanosis. No edema. Tender to palpation of the lateral side of the left wrist as well as the base of the thumb and first finger. Radial pulse intact. Sensation intact. Decreased range of motion secondary to pain. NEUROLOGICAL: Awake and alert. No obvious cranial nerve deficits. Motor grossly within normal limits. Normal speech. Data Data Last Documented VS Vital Signs Date Time Temp Pulse Resp B/P (MAP) Pulse Ox O2 Delivery O2 Flow Rate FiO2 09/13/17 10:13 17 Room Air 09/13/17 09:43 98.1 88 182/95 (124) 99 Orders Orders Ibuprofen (Motrin) (09/13/17 10:00) Wrist, Complete ([id number]) (09/13/17 ) [facility] Medical Decision Making Medical Screen Exam Complete: Yes Emergency Medical Condition: Yes Medical Record Reviewed: Yes Differential Diagnosis Wrist sprain versus wrist fracture versus contusion Narrative Course Patient is a 47-year-old female comes in complaining of left wrist pain after fall. Exam shows tenderness to palpation of the lateral side of the wrist. X- ray performed shows no acute abnormalities. Patient given ibuprofen. She is advised to continue to apply ice and take Tylenol or ibuprofen as needed. Advised follow-up with her primary care doctor. Advised to return to the ED as needed for any worsening symptoms. Diagnosis Primary Impression: Wrist sprain Qualified Codes: S63.502A - Unspecified sprain of left wrist, initial encounter Patient Instructions: General Instructions, Wrist Sprain (ED) Additional Instructions: Take Tylenol or ibuprofen as needed for pain. Apply ice several times a day. Follow-up with a primary care doctor. Return to the ED as needed for any worsening symptoms. Disposition: 01 DISCHARGE HOME Condition: Stable Ernestina Spear MD Sep 13, 2017 09:59
--- NOTE | 2017-09-13 10:11 | RADRPT ---
EXAM DATE/TIME: 09/13/2017 10:03 [facility] COMPARISON: No previous studies available for comparison. INDICATIONS : Left wrist pain from fall 3 days ago. MEDICAL HISTORY : None. SURGICAL HISTORY : None. ENCOUNTER: Initial ACUITY: 3 days PAIN SCORE: 7/10 LOCATION: Left lateral wrist. FINDINGS: Three view examination of the left wrist demonstrates no soft tissue swelling, dislocation, or fractu re. The carpal bones are in normal alignment. The joint spaces are maintained. Bony mineralization is normal. CONCLUSION: Unremarkable examination of the left wrist. Noah Zepeda MD on September 13, 2017 at 10:10 Board Certified Radiologist. This report was verified electronically.
== END 2017-09-13 10:53 | disposition home or self-care (01) ==
LOC: NEPD 09:42
DX: S63.502A Unspecified sprain of left wrist, initial encounter (principal); W01.0XXA Fall on same level from slipping, tripping and stumbling without subsequent striking against object, initial encounter
CPT/HCPCS: 73110; 99283

== ENCOUNTER 2017-12-01 08:44 | Emergency (ER) | payer SELFPAY ==
[~2017-12-01] VITALS: Ht 160 cm; Wt 75.0 kg
[~2017-12-01 08:44] MED LIST changes: -BACT800T5 PO; +MULTTAB67 PO; -PHEN0.4T PO
[2017-12-01 08:49] VITALS: BP 103/62; PULSE 93; RESP 16; TEMP 98.6; O2SAT 99
[2017-12-01] MEDS ORDERED: ONDANSETRON ODT 4 MG TAB PO ONE (09:15)
--- NOTE | 2017-12-01 09:15 | PD ---
HPI Chief Complaint: Cold / Flu Symptoms Time Seen by Provider: 09:05 Travel History International Travel<30 days: No Contact w/Intl Traveler<30days: No Traveled to known affect area: No History of Present Illness HPI This is a 47 year old female who presents for evaluation of sore throat, cough, hoarse voice, nausea, vomiting, diarrhea. Symptoms started this morning when she woke up at 4 AM. She reports multiple episodes of nonbloody watery stool as well as nonbloody emesis. She is currently without nausea however. She reports that she works at [employer] and was sent home from work this morning because of the symptoms. She does report that one of her coworkers has been having some diarrhea as well. She also reports that her grandson was diagnosed with influenza and streptococcal pharyngitis this week. She is complaining of some lower abdominal pain when she vomits. Denies any dysuria, flank pain, vaginal bleeding or discharge. She reports a history of hysterectomy and therefore denies any chance of . She has no other complaints at this time. [facility] Past Medical History Anemia: Yes Heart Rhythm Problems: No Cardiac Catheterization: No Cardiovascular Problems: Yes High Cholesterol: No Congestive Heart Failure: No Diabetes: No Diminished Hearing: No GERD: Yes Headaches: Yes Hypertension: Yes Musculoskeletal: Yes (LUMBAR SPINE CHRONIC PAIN) Immunizations Current: Yes Migraines: Yes Tetanus Vaccination: < 5 Years ?: Not Menopausal: No : 2 Para: 2 Miscarriage: 0 : 0 Dilation and Curettage (D&C): Yes Tubal Ligation: Yes Past Surgical History Abdominal Surgery: Yes (Gastric bypass) Section: Yes (X 2) Coronary Artery Bypass Graft: No Gynecologic Surgery: Yes (total hysterectomy) Hysterectomy: Yes Other Surgery: Yes (BREAST REDUCTION) Social History Alcohol Use: Yes (RARE) Tobacco Use: Yes Substance Use: No Allergies-Medications (Allergen,Severity, Reaction): Coded Allergies: hydromorphone (Unverified Allergy, Intermediate, ITCH, SWELLS UP, 12/01/17) Patient began itching with welts over body after Dilaudid given. Added to Allergy list. tramadol (Verified Allergy, Intermediate, HEADACHE, 12/01/17) penicillin G (Unverified Allergy, Mild, HIVES, 12/01/17) Reported Meds & Prescriptions Reported Meds & Active Scripts Active Zofran (Ondansetron HCl) 4 Mg Tab 4 Mg PO Q6HR PRN Macrobid (Nitrofurantoin Monoh/Nitrofur Macro) 100 Mg Cap 100 Mg PO BID 7 Days Reported Multiple Vitamin 1 Tab 1 Tab PO DAILY Omeprazole 10 Mg Cap 10 Mg PO DAILY Losartan-Hydrochlorothiazide 50-12.5 Mg Tab 1 Tab PO DAILY Review of Systems Except as stated in HPI: all other systems reviewed are Neg Physical Exam Narrative GENERAL: Well-developed well-nourished female in no acute distress SKIN: Warm and dry. HEAD: Atraumatic. Normocephalic. EYES: Pupils equal and round. No scleral icterus. No injection or drainage. ENT: No nasal bleeding or discharge. Mucous membranes pink and moist. Minimal erythema without exudate. Voice is hoarse with no stridor or drooling. NECK: Trachea midline. No JVD. No lymphadenopathy. CARDIOVASCULAR: Regular rate and rhythm. No murmur appreciated. RESPIRATORY: No accessory muscle use. Clear to auscultation. Breath sounds equal bilaterally. No crackles no wheezing or rhonchi GASTROINTESTINAL: Abdomen soft, non-tender, nondistended. Hepatic and splenic margins not palpable. Data Data Last Documented VS Vital Signs Date Time Temp Pulse Resp B/P (MAP) Pulse Ox O2 Delivery O2 Flow Rate FiO2 12/01/17 09:07 18 Room Air 12/01/17 08:49 98.6 93 103/62 (76) 99 Orders Orders Urinalysis - C+S If Indicated (12/01/17 09:12) Group A Rapid Strep Screen (12/01/17 09:12) Influenzae A/B Antigen (12/01/17 09:12) Oral Rehydration (12/01/17 09:12) Ondansetron Odt (Zofran Odt) (12/01/17 09:15) Urine Culture (12/01/17 09:15) Strep Culture (Group A) (12/01/17 09:15) Labs Laboratory Tests Test 12/01/17 09:15 Urine Color DARK-YELLOW Urine Turbidity CLOUDY Urine pH 6.0 Urine Specific [place] 1.030 Urine Protein 100 mg/dL Urine Glucose (UA) NEG mg/dL Urine Ketones NEG mg/dL Urine Occult Blood NEG Urine Nitrite NEG Urine Bilirubin NEG Urine Urobilinogen 2.0 MG/DL Urine Leukocyte Esterase LARGE Urine RBC 11 /hpf Urine WBC 96 /hpf Urine Squamous Epithelial Cells 25 /hpf Urine Amorphous Sediment OCC Urine Bacteria RARE /hpf Urine Hyaline Casts 2 /lpf Urine Mucus MANY /lpf Microscopic Urinalysis Comment CULTURE INDICATED MDM Medical Decision Making Medical Screen Exam Complete: Yes Emergency Medical Condition: Yes Medical Record Reviewed: Yes Differential Diagnosis Gastroenteritis, dehydration, influenza, pharyngitis Narrative Course 47-year-old female presents with one-day history of nausea, vomiting, diarrhea, sore throat, cough, hoarse voice with a grandson who was diagnosed with influenza and streptococcal pharyngitis this week. She appears well. Her abdomen is soft and nontender. She is complaining of some suprapubic discomfort but only when she vomits. She has a history of hysterectomy. Plan is for rapid strep screen, influenza antigen urinalysis. She will be given Zofran and will attempt oral rehydration here. The patient's influenza antigen rapid strep screen are both negative. Urinalysis does reveal large leukocytes with 11 rbc's, 96 to be PVCs. There is contaminated with 25 squamous epithelial cells however, pending culture results , the patient will be given Macrobid for the pyuria. The patient is being discharged with Zofran for her nausea. Discussed signs and symptoms that warrant return to the emergency room. She is stable for discharge. Diagnosis Primary Impression: Nausea and vomiting Additional Impressions: Pyuria Laryngitis Pharyngitis Departure Forms: Tests/Procedures, Work Release Enter return to work date: Dec 04, 2017 Additional Instructions: Medication as prescribed. Slowly advance diet as tolerated. Vocal rest. Wash hands frequently, covering mouth when coughing. Return for any acutely new or worsening symptoms. Med/Other Pt SpecificInfo: Prescription(s) given Scripts Ondansetron (Zofran) 4 Mg Tab 4 MG PO Q6HR Y for NAUSEA OR VOMITING, #20 TAB 0 Refills Prov: Yennifer Encinas MD 12/01/17 Nitrofurantoin Monohydrate Macrocrystals (Macrobid) 100 Mg Cap 100 MG PO BID for Infection for 7 Days, #14 CAP 0 Refills Prov: Yennifer Encinas MD 12/01/17 Disposition: DISCHARGE HOME Condition: Stable Carlos Lu Dec 01, 2017 09:15
[2017-12-01 09:51] LABS: AMORPHOUS SEDIMENT, URINE OCC; BACTERIA, URINE RARE /hpf; BILIRUBIN, URINE NEG (NEG); BLOOD, URINE NEG (NEG); GLUCOSE,URINE NEG (NEG); HYALINE CAST, URINE 2 /lpf (RARE); KETONE, URINE NEG (NEG); MUCUS URINE MANY /lpf (OCC); NITRITE,URINE NEG (NEG); SQUAMOUS EPITHELIAL CELL URINE 25 /hpf (0-5); URINE COLOR DARK-YELLOW (YELLW/STRAW); URINE LEUKOCYTE ESTERASE LARGE (NEG)
[2017-12-01] MEDS ORDERED: MACR100C2 PO (10:01)
[2017-12-01] MEDS ORDERED: ZOFR4TAB PO (10:01)
== END 2017-12-01 10:17 | disposition home or self-care (01) ==
LOC: NEPD 08:44
DX: R11.2 Nausea with vomiting, unspecified (principal); N39.0 Urinary tract infection, site not specified; J04.0 Acute laryngitis; J02.9 Acute pharyngitis, unspecified; K21.9 Gastro-esophageal reflux disease without esophagitis; G89.29 Other chronic pain; M54.5 Low back pain; Z98.84 Bariatric surgery status; Z72.0 Tobacco use
CPT/HCPCS: 81001; 87081; 87086; 87804; 87880; 99283

== ENCOUNTER 2017-12-21 17:16 | Emergency (ER) | payer SELFPAY ==
[~2017-12-21] VITALS: Ht 162.6 cm; Wt 73.0 kg
[~2017-12-21 17:16] MED LIST changes: +MACR100C2 PO; +ZOFR4TAB PO
[2017-12-21 17:37] VITALS: BP 175/92; PULSE 93; RESP 18; TEMP 98.4; O2SAT 99
== END 2017-12-21 19:00 | disposition left against medical advice (07) ==
LOC: NETRI 17:16
DX: F99 Mental disorder, not otherwise specified (principal)
CPT/HCPCS: 99281

== ENCOUNTER 2018-03-26 08:12 | Emergency (ER) | payer SELFPAY ==
[~2018-03-26] VITALS: Ht 160 cm; Wt 68.0 kg
[~2018-03-26 08:12] MED LIST changes: -MACR100C2 PO; -ZOFR4TAB PO
[2018-03-26 08:21] VITALS: BP 179/98; PULSE 92; RESP 20; TEMP 99.3; O2SAT 99
[2018-03-26] MEDS ORDERED: ORPHENADRINE INJ 60 MG/2 ML AMP IM ONE (09:30)
[2018-03-26] MEDS ORDERED: KETOROLAC TROMETHAMINE 60 MG/2 ML (IM) VIAL IM ONE (09:30)
[2018-03-26] MEDS ORDERED: LOSA50TA2 PO (09:30)
[2018-03-26] MEDS ORDERED: IBUP1TAB7 PO (09:31)
[2018-03-26] MEDS ORDERED: ROBA500T PO (09:31)
--- NOTE | 2018-03-26 09:32 | PD ---
HPI Chief Complaint: Pain: Acute or Chronic Time Seen by Provider: 08:44 Travel History International Travel<30 days: No Contact w/Intl Traveler<30days: No Traveled to known affect area: No History of Present Illness HPI 47-year-old female presents to the emergency department, with history of chronic low back pain, with acute exacerbation of chronic low back pain for the past 2 days. She has had chronic low back pain for the past 2-3 years. Says she has bulging disks L4 and L5. She is to receive injections into her back when she lived in [place], but she has moved down here not been able to obtain insurance or care. Denies new or recent injury. Denies encopresis, incontinence, saddle anesthesias. Denies fever, vomiting, abdominal pain, change in urine or stool. Denies IV drug use or cancer. Denies paresthesias, loss of sensation, decreased range of motion, decreased strength to bilateral lower extremities. Rates pain 8/10. Pain is constant. Worse with movement. Has taken [id number] Tylenol with no relief of symptoms. No primary care provider. Allergies to penicillin, Dilaudid, tramadol. History of hypertension and chronic low back pain. Ran out of her blood pressure medication about 2 weeks ago and has not taken her pressure medications. Is asymptomatic. Is requesting a refill. Has no other medical complaints. No other modifying factors or associated signs and symptoms. PFSH Past Medical History Anemia: Yes Asthma: Yes Heart Rhythm Problems: No Cardiac Catheterization: No Cardiovascular Problems: Yes High Cholesterol: No Congestive Heart Failure: No Diabetes: No Diminished Hearing: No GERD: Yes Headaches: Yes Hypertension: Yes Musculoskeletal: Yes (LUMBAR SPINE CHRONIC PAIN) Respiratory: Yes (ASTHMA) Immunizations Current: Yes Migraines: Yes ?: Not Menopausal: No : 2 Para: 2 Miscarriage: 0 : 0 Dilation and Curettage (D&C): Yes Tubal Ligation: Yes Past Surgical History Abdominal Surgery: Yes (Gastric bypass) Section: Yes (X 2) Coronary Artery Bypass Graft: No Gynecologic Surgery: Yes (total hysterectomy) Hysterectomy: Yes Other Surgery: Yes (BREAST REDUCTION) Social History Alcohol Use: Yes (RARE- A FEW DRINKS TODAY) Tobacco Use: Yes Substance Use: Yes (MARIJUANA) Allergies-Medications (Allergen,Severity, Reaction): Coded Allergies: hydromorphone (Unverified Allergy, Intermediate, ITCH, SWELLS UP, 03/26/18) Patient began itching with welts over body after Dilaudid given. Added to Allergy list. tramadol (Verified Allergy, Intermediate, HEADACHE, 03/26/18) penicillin G (Unverified Allergy, Mild, HIVES, 03/26/18) Reported Meds & Prescriptions Reported Meds & Active Scripts Active Reported Losartan-Hydrochlorothiazide 50-12.5 Mg Tab 1 Tab PO DAILY Review of Systems Except as stated in HPI: all other systems reviewed are Neg Physical Exam Narrative GENERAL: Well-nourished, well-developed black female patient, in no acute distress; afebrile, nontoxic-appearing SKIN: Warm and dry. HEAD: Atraumatic. Normocephalic. EYES: Pupils equal and round. No scleral icterus. No injection or drainage. ENT: Mucosa pink and moist. Airway patent. NECK: Trachea midline. CARDIOVASCULAR: Regular rate. RESPIRATORY: No accessory muscle use. GASTROINTESTINAL: Rounded. MUSCULOSKELETAL: Bilateral lower extremities supple and non-tense with 2+ pedal pulses and sensory intact; with full range of motion and 5/5 strength. 2 + DTRs bilaterally. Active dorsiflexion and extension of bilateral feet. Bilateral straight leg raise is negative for low back pain. Ambulatory in room with normal gait. Sitting up in bed at 90. No obvious deformities. No clubbing. No cyanosis. No edema. BACK: Midline point tenderness on palpation of the lumbar spine. Tenderness on palpation of bilateral lumbar paraspinal area. No obvious deformities. NEUROLOGICAL: Awake and alert. Oriented 3. No obvious cranial nerve deficits. Motor grossly within normal limits. Normal speech. Moves all extremities. 5/5 strength to all extremities. Sensory intact. PSYCHIATRIC: Appropriate mood and affect; insight and judgment normal. Data Data Last Documented VS Vital Signs Date Time Temp Pulse Resp B/P (MAP) Pulse Ox O2 Delivery O2 Flow Rate FiO2 03/26/18 08:21 99.3 92 20 179/98 (125) 99 Orders Orders Ketorolac Inj (Toradol Inj) (03/26/18 09:30) Orphenadrine Inj (Norflex Inj) (03/26/18 09:30) MDM Medical Decision Making Medical Screen Exam Complete: Yes Emergency Medical Condition: Yes Medical Record Reviewed: Yes Differential Diagnosis Acute exacerbation of chronic low back pain, pain management, medication refill Narrative Course 47-year-old female with history of chronic low back pain with acute exacerbation. Denies encopresis, incontinence, saddle anesthesias. Denies IV drug use or cancer. No new or recent injury. Patient is able to train the room with a normal gait. Neuro exam is unremarkable. Patient does have midline tenderness on palpation of the lumbar spine but this is chronic in nature. I do not feel that imaging is necessary at this time. Requesting refill on blood pressure medication. Has been out for 2 weeks. Patient is asymptomatic. Toradol and Norflex administered in the ER. Ibuprofen and Robaxin prescribed for home. Refill of lisinopril/hydrochlorothiazide prescribed for home. Instructed patient to follow-up with pain management and patient provided information for [facility] clinic for follow-up. Instructed patient to follow up with primary care provider. Patient verbalizes understanding and agreement with treatment plan. Patient is medically cleared and stable for discharge. Discussed reasons to return to the emergency department. Patient agrees with treatment plan. The patients vital signs are stable and the patient is stable for outpatient follow-up and treatment. Patient discharged home, stable and in no acute distress. Diagnosis Primary Impression: Acute exacerbation of chronic low back pain Additional Impression: Medication refill Referrals: [facility] Primary Care Physician Patient Instructions: Acute Low Back Pain (ED), General Instructions, Medication Refill, ED Additional Instructions: Tylenol or ibuprofen as directed and as needed for pain Robaxin as prescribed and as needed for muscle spasms Heating pad and/or ice to affected area to reduce pain Avoid aggravating activities; increase activity as tolerated Follow-up with primary care provider Return to emergency department immediately with worsening of symptoms Med/Other Pt SpecificInfo: Prescription(s) given Scripts Ibuprofen (Ibuprofen) 800 Mg Tab 800 MG PO Q6HR Y for PAIN, #30 TAB 0 Refills Prov: Chelsea Burden [employer] 03/26/18 Methocarbamol (Robaxin) 500 Mg Tab 500 MG PO QID Y for MUSCLE SPASM, #30 TAB 0 Refills Prov: Chelsea Burden [employer] TECH[employer]ICIAN 03/26/18 Losartan-Hydrochlorothiazide (Losartan-Hydrochlorothiazide) 50-12.5 Mg Tab 1 TAB PO DAILY for Blood Pressure Management, #30 TAB 0 Refills Prov: Chelsea Burden 03/26/18 Disposition: 01 DISCHARGE HOME Condition: Stable Chelsea Burden Mar 26, 2018 09:32
== END 2018-03-26 10:39 | disposition home or self-care (01) ==
LOC: NEPD 08:12
DX: M54.5 Low back pain (principal); G89.29 Other chronic pain; I10 Essential (primary) hypertension; F12.90 Cannabis use, unspecified, uncomplicated; Z72.0 Tobacco use; Z76.0 Encounter for issue of repeat prescription
CPT/HCPCS: 96372; 99283; J1885; J2360